=== PATIENT | male | born 1935 | race Two or more races ===

== ENCOUNTER 2017-10-26 16:01 | Inpatient (IN) | payer MEDICARE ==
[~2017-10-26] VITALS: Ht 167.6 cm; Wt 56.0 kg
[~2017-10-26 16:01] MED LIST: ALBUTEROL SULF8.5 GM INH; AMLODIPINE BESY10 MG PO; ATENOLOL50 MG PO; CARAFATE1 GM/10 ML PO; CYPROHEPTADINE H4 MG PO; LEVOXYL50 MCG PO; PANTOPRAZOLE SO40 MG PO; VASOTEC10 M1 PO
[2017-10-26] MEDS ORDERED: PANTOPRAZOLE 40 MG 10ML VIAL IV STA (16:55)
[2017-10-26] MEDS ORDERED: SODIUM CHLORIDE 0.9% 1000ML 1,000 ML IV STA (16:55)
[2017-10-26] MEDS ORDERED: DIATRIZOATE MEGL/DIATRIZOA SOD 30 ML BTL PO ONE (17:06)
[2017-10-26 17:21] LABS: BILIRUBIN,URINE NEGATIVE (NEGATIVE); CLARITY,URINE CLEAR (CLEAR); COLOR,URINE YELLOW (YELLOW); KETONES,URINE NEGATIVE (NEGATIVE); LEUKOCYTE ESTERASE ,URINE NEGATIVE (NEGATIVE); NITRITE,URINE NEGATIVE (NEGATIVE); PROTEIN,URINE DIPSTICK NEGATIVE (NEGATIVE); URINE UROBILINOGEN 0.2 mg/dL (0.2 - 1)
[2017-10-26 17:22] LABS: BASOPHILS # (AUTO) 0.1 (0.0-0.1); BASOPHILS % 0.5 % (0.0-1.0); EOSINOPHILS # (AUTO) 0.3 (0.0-0.4); EOSINOPHILS % 2.5 % (0.0-6.0); HEMATOCRIT 32.6 % (38.2-49.6); HEMOGLOBIN 10.8 g/dL (14.0-18.0); LYMPHOCYTES # (AUTO) 1.9 (1.0-3.2); LYMPHOCYTES % 16.8 % (18.0-39.1); MEAN CORPUSCULAR HEMOGLOBIN 25.2 pg (28-32); MEAN CORPUSCULAR HGB CONC 33.1 g/dL (31-35); MEAN CORPUSCULAR VOLUME 76.2 fL (81-99); MONOCYTES # (AUTO) 1.6 (0.2-0.8); MONOCYTES % 13.6 % (4.4-11.3); NEUTROPHILS # (AUTO) 7.7 (2.1-6.9); NEUTROPHILS % 66.3 % (38.7-80.0); PLATELET COUNT 442 x10e3/uL (140-360); RED BLOOD COUNT 4.28 x10e6/uL (4.3-5.7); RED CELL DISTRIBUTION WIDTH 14.4 % (11.7-14.4)
[2017-10-26] MEDS ORDERED: NIFEDIPINE 10 MG CAP PO ONE (17:30)
[2017-10-26 17:33] LABS: MUCUS,URINE FEW (RARE); RBC,URINE 0-5 /HPF (0-5); WBC,URINE (MAN) 0-5 /HPF (0-5)
[2017-10-26 17:41] LABS: ALBUMIN 3.9 g/dL (3.5-5.0); ALBUMIN/GLOBULIN RATIO 1.1 (0.8-2.0); ANION GAP 13.5 mmol/L (8-16); CALCIUM 9.6 mg/dL (8.4-10.2); CREATININE, SERUM 1.27 mg/dL (0.72-1.25); POTASSIUM 4.5 mmol/L (3.5-5.1)
[2017-10-26 18:29] LABS: EOSINOPHILS % (MANUAL) 2 % (0-7); LYMPHOCYTES % (MANUAL) 24 % (19-48); METAMYELOCYTES % (MANUAL) 1 % (0-0); MONOCYTES % (MANUAL) 20 % (3.4-9.0); NEUTROPHILS % (MANUAL) 50 % (40-74)
[2017-10-26 18:30] LABS: HYPOCHROMASIA SLIGHT; PLATELET ESTIMATE SLIGHTLY INCREASED; PLATELET MORPHOLOGY COMMENT NORMAL; RBC MORPHOLOGY COMMENT NORMAL
[2017-10-26] MEDS ORDERED: ONDANSETRON HCL INJ 2 MG/ML VIAL IV PRN (19:00)
[2017-10-26] MEDS ORDERED: LEVOFLOXACIN 500MG/D5W 100ML IV SCH (19:00)
--- NOTE | 2017-10-26 19:52 | Diagnostic Imaging Report ---
EXAM: CT of the abdomen and pelvis WITH contrast HISTORY: Blood in stool, weight loss COMPARISON: CT of the abdomen and pelvis October 21, 2016. TECHNIQUE: The abdomen and pelvis were scanned utilizing a multidetector helical scanner. Coronal and sagittal reformats are provided. PROTOCOL: Routine IV CONTRAST: 100 cc of Isovue-370. ORAL CONTRAST: Dilute Gastrografin RADIATION DOSE: Total DLP: 173.19 mGy*cm Estimated effective dose: (DLP x 0.015 x size factor) COMPLICATIONS: None FINDINGS: LOWER THORAX: Unremarkable. HEPATOBILIARY: No focal hepatic lesions. No biliary ductal dilatation. The gallbladder is unremarkable. SPLEEN: No splenomegaly. PANCREAS: No focal masses or ductal dilatation. Diffuse parenchymal atrophy. ADRENALS: No discrete adrenal nodule. KIDNEYS/URETERS: No hydronephrosis, stones, or solid mass lesions. PELVIC ORGANS/BLADDER: Increased distention of the urinary bladder. PERITONEUM / RETROPERITONEUM: No free air or fluid. LYMPH NODES: Nonspecific retroperitoneal lymph nodes. VESSELS: Extensive atherosclerotic vascular calcifications, including the coronary arteries, including: * The proximal celiac artery disease has progressed, now likely a short segment occlusion. * Also, likely progression of the superior mesenteric artery proximal occlusion. * Progression of the proximal inferior mesenteric artery disease, now with a high-grade stenosis. * As before, presumed retrograde reconstitution of the superior mesenteric artery distribution * The proximal renal artery stenoses appear similar. GI TRACT: Radiopaque contrast material within the stomach and proximal small bowel. The small bowel diameter measures up to 3 cm. Small bowel feces sign of the terminal ileum. Air and fecal material throughout the redundant colon. The sigmoid colon remains within the right hemipelvis/hemiabdomen. A small hiatal hernia. BONES: No aggressive osseous lesion or acute fracture. Partially visualized median sternotomy wires. SOFT TISSUES: Unchanged small right anterior thigh intramuscular lipoma. IMPRESSION: 1. Progression of the advanced after scrubbing vascular disease, including probable celiac artery proximal occlusion, proximal superior mesenteric artery occlusion, and progression of the proximal inferior mesenteric artery stenosis. Correlate for abdominal angina. 2. Stable appearing proximal renal artery stenoses. 3. Once again, redundant colon with the sigmoid colon within the right hemipelvis/hemiabdomen. 4. Borderline small bowel dilation may reflect ileus. No discrete transition point. Signed by: Dr. Michi Ferreira D.O., M.M.M. on 10/26/2017 7:49 PM
[2017-10-26] MEDS: LEVOFLOXACIN 500MG/D5W 100ML 100 ML IV SCH (21:40)
[2017-10-26] MEDS: D5.45%NS/KCL 20MEQ 1,000 ML IV SCH (21:40)
[2017-10-26] MEDS: METRONIDAZOLE 500MG/NS 100ML 100 ML IV SCH ×2 (21:40→23:53)
[2017-10-26] MEDS ORDERED: IOPAMIDOL 370 MG/ML 200 ML INFUS..BTL INJ ONE (22:33)
[2017-10-26] MEDS ORDERED: SODIUM CHLORIDE 0.9% 50ML 50 ML ONE (22:33)
[2017-10-27] MEDS ORDERED: METRONIDAZOLE 500MG/NS 100ML IV SCH
[2017-10-27] MEDS: METRONIDAZOLE 500MG/NS 100ML 100 ML IV SCH ×3 (06:08→20:00)
[2017-10-27 07:38] LABS: BASOPHILS % 0.4 % (0.0-1.0); EOSINOPHILS # (AUTO) 0.2 (0.0-0.4); EOSINOPHILS % 2.3 % (0.0-6.0); HEMATOCRIT 28.6 % (38.2-49.6); HEMOGLOBIN 9.5 g/dL (14.0-18.0); LYMPHOCYTES % 9.4 % (18.0-39.1); MEAN CORPUSCULAR HGB CONC 33.2 g/dL (31-35); MEAN CORPUSCULAR VOLUME 75.3 fL (81-99); MONOCYTES # (AUTO) 1.1 (0.2-0.8); NEUTROPHILS # (AUTO) 7.8 (2.1-6.9); NEUTROPHILS % 76.6 % (38.7-80.0); PLATELET COUNT 348 x10e3/uL (140-360); RED CELL DISTRIBUTION WIDTH 14.1 % (11.7-14.4)
[2017-10-27 07:52] LABS: ANION GAP 9.8 mmol/L (8-16); BLOOD UREA NITROGEN 11 mg/dL (7-26); BUN/CREATININE RATIO 11 (6-25); CARBON DIOXIDE 24 mmol/L (22-29); CHLORIDE 100 mmol/L (98-107); EST GLOMERULAR FILTRATION RATE > 60 ML/MIN (60-); GLUCOSE 109 mg/dL (74-118); POTASSIUM 4.8 mmol/L (3.5-5.1); SODIUM 129 mmol/L (136-145)
[2017-10-27] MEDS ORDERED: ALBUTEROL SULFATE HFA 8GM INHALATION AEROSOL INH PRN (10:00)
[2017-10-27] MEDS: D5.45%NS/KCL 20MEQ 1,000 ML IV SCH ×2 (10:29→20:35)
[2017-10-27] MEDS: PANTOPRAZOLE SOD 40 MG TABEC PO SCH ×2 (14:22→20:35)
[2017-10-27] MEDS: SUCRALFATE 1 GM/10 ML SUSP PO SCH ×3 (14:23→20:00)
--- NOTE | 2017-10-27 17:12 | Consultation ---
DATE OF CONSULTATION: October 27, 2017 CARDIOLOGY CONSULTATION ATTENDING PHYSICIAN: Dr. Maxime Ferguson. HISTORY: This 82 y/o male was evaluated in the emergency room today. Patient was brought in yesterday with a history of severe abdominal pain and recurrent bloody stools over a couple of weeks. This consultation was requested especially to help stabilize cardiac-hill and clear the patient for endoscopic procedure. PAST MEDICAL HISTORY: Hypertension, hypothyroidism, diabetes mellitus, prostatectomy. Cardiac catheterization and left anterior descending artery plus circumflex coronary artery stent placements at the [facility] in September and October 2009 respectively. MEDICATIONS: Amlodipine, metolazone and spironolactone on p.r.n. basis, Lipitor , Protonix, Plavix, aspirin, magnesium oxide, vitamin D3, calcium, multivitamins, [place]-3, probiotics. ALLERGIES: NONE. PERSONAL HISTORY: Nonsmoker for all his life. H/o drinking socially. Denied drug abuse Pt is retired. REVIEW OF SYSTEMS: Patient has a history of recurrent episodes of nausea, vomiting, diarrhea as noted above. There is a history of melena and hematochezia. Denied having any chest pain, dyspnea, palpitations, dizziness at this time. Denied any focalizing neurologic symptoms. PHYSICAL EXAMINATION GENERAL: A well-built, well-nourished, well-oriented male. VITALS: Afebrile. Pulse 55. Respiration 18. Blood pressure 165/72. NECK: Jugular veins normal. Carotid pulse normal. HEART: S1/S2 normal. LUNGS: Clear. ABDOMEN: Soft. EXTREMITIES: No edema. Peripheral pulses palpable. DIAGNOSTIC DATA EKG: Sinus bradycardia, nonspecific ST-T changes, right bundle branch block. CBC: Hgb 9.5, further down to 8.4. BMP: Sodium 129. BUN & creatinine normal. Liver function studies were normal. Colonoscopy: Hemorrhoids. Polyp. No active bleeder. Possibly bleeding hemorrhoids. FINAL IMPRESSION 1. Recurrent nausea, vomiting and bloody diarrhea, recurrent. 2. Hypertension. 3. Hypertensive heart disease. 4. Hyperlipidemia. 5. Chronic gastroesophageal reflux disease syndrome. 6. Anemia due to chronic rectal bleeding, needing two units blood transfusion. 7. History of left anterior descending and circumflex coronary artery stent placement. 8. Sinus bradycardia. 9. H/o bilateral renal artery stenosis, moderate degree. 10. 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 RECOMMENDATIONS: Suggest to continue current medical therapy with the beta gerald as tolerated. We will also continue with amlodipine and WILLOW or ARB agent. Suggest to continue pantoprazole and levothyroxine. Patient is advised to continue with Lasix as-needed basis.We will clear this pt. for EGD and colonoscoly at moderate risk. Pt. is quite high risk for any surgery under general anesthesia. I have advised him to discontinue Plavix & aspirin temporarily until the endoscopic evaluation is cleared. Patient has a guarded prognosis in view of severe extensive vascular disease such as coronary artery disease, carotid artery disease, renal artery disease, celiac and superior mesenteric arterial disease. We will continue conservative medical management for coeliac, superior & inferior mesenteric arterial disease. We can resume ASA and Plavix now. Advise simple spice free diet. We will follow along with you. Thank you, Dr. Maxime Ferguson, for this consultation. Job#: [id number] EV MTDD
[2017-10-27 17:52] VITALS: BP 190/70
[2017-10-27 18:43] VITALS: BP 190/70
[2017-10-27] MEDS: LEVOFLOXACIN 500MG/D5W 100ML 100 ML IV SCH (20:00)
[2017-10-27 20:26] VITALS: BP 182/78
[2017-10-27] MEDS: ATENOLOL 50 MG TAB PO SCH (20:30)
[2017-10-27] MEDS: AMLODIPINE BESYLATE 10 MG TAB PO SCH (20:30)
[2017-10-27] MEDS: ENALAPRIL MALEATE 10 MG TAB PO SCH (20:30)
[2017-10-27] MEDS ORDERED: PEG (High)/E-LYTE SOLN 4,000 ML BTL PO ONE (20:35)
[2017-10-27 22:14] VITALS: BP 178/75
[2017-10-28 00:18] VITALS: BP 177/75
[2017-10-28] MEDS: METRONIDAZOLE 500MG/NS 100ML 100 ML IV SCH ×4 (02:00→21:43)
[2017-10-28] MEDS: SUCRALFATE 1 GM/10 ML SUSP PO SCH ×4 (02:00→21:43)
[2017-10-28 04:10] VITALS: BP 125/58
[2017-10-28] MEDS: LEVOTHYROXINE SODIUM 50 MCG TAB PO SCH (05:33)
[2017-10-28 07:27] LABS: BASOPHILS % 0.4 % (0.0-1.0); EOSINOPHILS # (AUTO) 0.1 (0.0-0.4); EOSINOPHILS % 1.3 % (0.0-6.0); HEMATOCRIT 25.4 % (38.2-49.6); HEMOGLOBIN 8.4 g/dL (14.0-18.0); LYMPHOCYTES # (AUTO) 1.1 (1.0-3.2); LYMPHOCYTES % 14.8 % (18.0-39.1); MEAN CORPUSCULAR HGB CONC 33.1 g/dL (31-35); MEAN CORPUSCULAR VOLUME 75.6 fL (81-99); MONOCYTES # (AUTO) 1.1 (0.2-0.8); MONOCYTES % 14.5 % (4.4-11.3); NEUTROPHILS # (AUTO) 5.3 (2.1-6.9); NEUTROPHILS % 68.7 % (38.7-80.0); PLATELET COUNT 333 x10e3/uL (140-360); RED BLOOD COUNT 3.36 x10e6/uL (4.3-5.7); RED CELL DISTRIBUTION WIDTH 14.2 % (11.7-14.4)
[2017-10-28 07:41] VITALS: BP 127/57
[2017-10-28 07:57] LABS: ALANINE AMINOTRANSFERASE 15 IU/L (0-55); ALBUMIN 2.7 g/dL (3.5-5.0); ALBUMIN/GLOBULIN RATIO 1.1 (0.8-2.0); ALKALINE PHOSPHATASE 75 IU/L (40-150); ANION GAP 8.2 mmol/L (8-16); BLOOD UREA NITROGEN 8 mg/dL (7-26); BUN/CREATININE RATIO 7 (6-25); CALCIUM 8.4 mg/dL (8.4-10.2); CARBON DIOXIDE 27 mmol/L (22-29); CHLORIDE 100 mmol/L (98-107); CREATININE, SERUM 1.15 mg/dL (0.72-1.25); EST GLOMERULAR FILTRATION RATE > 60 ML/MIN (60-); GLUCOSE 124 mg/dL (74-118); POTASSIUM 4.2 mmol/L (3.5-5.1); SODIUM 131 mmol/L (136-145)
[2017-10-28] MEDS: ATENOLOL 50 MG TAB PO SCH (08:00)
[2017-10-28] MEDS: ENALAPRIL MALEATE 10 MG TAB PO SCH (08:00)
[2017-10-28] MEDS: PANTOPRAZOLE SOD 40 MG TABEC PO SCH ×2 (08:00→21:43)
[2017-10-28] MEDS: AMLODIPINE BESYLATE 10 MG TAB PO SCH (08:00)
[2017-10-28] MEDS ORDERED: LEVOTHYROXINE SODIUM 50 MCG TAB PO SCH (09:00)
[2017-10-28 12:10] LABS: HEMATOCRIT 25.8 % (38.2-49.6); HEMOGLOBIN 8.4 g/dL (14.0-18.0)
[2017-10-28 12:52] LABS: FERRITIN 19.91 ng/mL (21.81-274.66)
[2017-10-28 12:58] VITALS: BP 136/63
[2017-10-28] MEDS: D5.45%NS/KCL 20MEQ 1,000 ML IV SCH (14:30)
--- NOTE | 2017-10-28 15:42 | History and Physical ---
He is 82-year-old male patient of mine who presented to me with a complaint of bloody diarrhea with some intermittent blood in the stool. HISTORY OF PRESENT ILLNESS: Mr. Ferguson is 82-year-old male patient with a significant history of coronary artery disease, coronary artery bypass surgery, angioplasty and diabetes mellitus, hypertension, hyperlipidemia, anemia, and previous problem with gastritis and diverticulitis and GI bleeding. Presented to me with a complaint of intermittent history of bloody bowel movements. Patient is significantly losing weight and has a poor appetite and feeling weak. PAST MEDICAL HISTORY: Hypertension, diabetes mellitus, coronary artery disease, and intestinal angina. PAST SURGICAL HISTORY: Coronary artery bypass surgery and angioplasties. Patient has had colonoscopy and endoscopies. SOCIAL HISTORY: Denies smoking, denies using alcohol. FAMILY HISTORY: Diabetes mellitus, coronary artery disease. REVIEW OF SYSTEMS: Abdominal pain, abdominal discomfort, decreased appetite. Weakness and bloody stool. PHYSICAL EXAMINATION: VITAL SIGNS: Temperature 98, pulse rate 78, respiration rate 16, blood pressure 110/70. HEENT: Normocephalic, atraumatic. LUNGS: Bilateral equal fair air entry. No rales. No rhonchi. HEART: S1 and S2 regular. Systolic murmur present. ABDOMEN: Soft. Bowel sounds present. No focal tenderness, guarding, rigidity. NEUROLOGICAL: No focal neurological deficit. ADMITTING IMPRESSION AND DIAGNOSES: 1. Gastrointestinal bleed, rectal bleed, suspecting intestinal angina or mesenteric ischemia. 2. Colitis. 3. Diabetes mellitus. 4. Hypertension. 5. Coronary artery disease. 6. Anemia. 7. Hyperlipidemia. PLAN: Patient will be admitted with the above diagnoses. Will hold Plavix. Will obtain cardiology and GI consult. Patient had a CT scan of the abdomen done and was found to have significant vascular disease in the mesenteric and celiac vascular bed. Will monitor patient for hemoglobin and hematocrit. Patient will undergo endoscopic evaluation by Dr. Manzo. Job#: [id number]
[2017-10-28] MEDS ORDERED: SODIUM CHLORIDE 0.9% 250ML 250 ML IV ONE (16:30)
[2017-10-28] MEDS ORDERED: FUROSEMIDE INJ 10 MG/ML 4 ML VIAL IV ONE (17:00)
[2017-10-28 17:01] VITALS: BP 130/63
[2017-10-28] MEDS ORDERED: PROPOFOL IV EMULSION 10 MG/ML 50 ML VIAL ONE (18:34)
[2017-10-28] MEDS ORDERED: HYOSCYAMINE SULFATE 0.5 MG/ML AMP ONE (18:34)
[2017-10-28] MEDS ORDERED: LIDOCAINE HCL 2% LOCAL INJ 5 ML SDV VIAL INJ ONE (18:34)
[2017-10-28] MEDS ORDERED: DEXTROSE 10% 1,000 ML IV PRN (19:00)
[2017-10-28] MEDS ORDERED: MIDAZOLAM HCL 2 MG/2 ML VIAL ONE (19:04)
[2017-10-28] MEDS ORDERED: FENTANYL CITRATE/PF 100MCG/2 ML INJ ONE (19:04)
[2017-10-28] MEDS: LEVOFLOXACIN 500MG/D5W 100ML 100 ML IV SCH (21:43)
[2017-10-28 22:34] LABS: INR 1.17; PROTHROMBIN TIME 15.5 seconds (11.9-14.5)
[2017-10-28 22:35] LABS: PARTIAL THROMBOPLASTIN TIME 40.4 seconds (23.8-35.5)
[2017-10-29] VITALS: BP 113/56
[2017-10-29] MEDS: D5.45%NS/KCL 20MEQ 1,000 ML IV SCH (00:15)
[2017-10-29] MEDS ORDERED: SODIUM CHLORIDE 0.9% 250ML 250 ML ONE ×2 (00:19→04:41)
--- NOTE | 2017-10-29 01:16 | Operative Report ---
DATE OF PROCEDURE: October 28, 2017 REFERRING PHYSICIAN: Dr. Enma Read. PROCEDURE PERFORMED: Colonoscopy and polypectomy. INDICATIONS FOR COLONOSCOPY: Rectal bleeding, anemia. MEDICATION: Patient was done under MAC. Please see anesthesiologist's note. PROCEDURE: With the patient in left lateral decubitus position, the flexible fiberoptic Olympus colonoscope was inserted into the rectum with ease and advanced all the way to the cecum. It was then withdrawn slowly. Mucosa overlying the cecum, ascending, transverse, descending, and sigmoid appeared to be within normal limits. One polyp was hot biopsied from the distal rectum. The scope was then retroflexed into the distal rectum and moderate-sized internal hemorrhoids were noted, none of which was actively bleeding. The scope was then straightened out. The rectosigmoid area as well as the distal rectal area were decompressed. The scope was subsequently withdrawn. The patient tolerated the procedure well. IMPRESSIONS 1. Rectal polyp, hot biopsied. 2. Moderate-sized internal hemorrhoids. PLAN: Follow up histology. Findings do not necessarily explain patient's blood loss. Will obtain a GI bleed scan, and if negative, will proceed with EGD. Job#: [id number] CF cc:JESSICA READ MD
[2017-10-29] MEDS: SUCRALFATE 1 GM/10 ML SUSP PO SCH ×2 (02:00→08:00)
[2017-10-29] MEDS: METRONIDAZOLE 500MG/NS 100ML 100 ML IV SCH ×2 (03:48→08:00)
[2017-10-29 04:00] VITALS: BP 144/64
[2017-10-29] MEDS ORDERED: FUROSEMIDE INJ 10 MG/ML 4 ML VIAL IV ONE (04:30)
[2017-10-29] MEDS: LEVOTHYROXINE SODIUM 50 MCG TAB PO SCH (06:09)
[2017-10-29] MEDS: PANTOPRAZOLE SOD 40 MG TABEC PO SCH (08:00)
[2017-10-29] MEDS: AMLODIPINE BESYLATE 10 MG TAB PO SCH (08:00)
[2017-10-29] MEDS: ENALAPRIL MALEATE 10 MG TAB PO SCH (08:00)
[2017-10-29] MEDS: ATENOLOL 50 MG TAB PO SCH (08:00)
[2017-10-29 09:00] VITALS: BP 138/61
--- NOTE | 2017-10-29 10:44 | Consultation ---
DATE OF CONSULTATION: October 28, 2017 HISTORY OF PAST ILLNESSES: Mr. Read is an 82-year-old [place] male who has been referred to me for evaluation of anemia following hematochezia. History of past illness, history of significant coronary artery disease, history of coronary artery bypass, history of having had angioplasty. He has been on Plavix and aspirin, history of diabetes mellitus, hypertension and hyperlipidemia. SOCIAL HISTORY: Noncontributory. FAMILY HISTORY: Noncontributory. ALLERGIES: Reported none. MEDICATIONS: 1. Levaquin. 2. Metronidazole. 3. Ondansetron. 4. Enalapril. 5. Protonix. 6. Synthroid. 7. Amlodipine. 8. Carafate REVIEW OF SYSTEMS: HEENT: Normal. CARDIAC: Hypertension, hyperlipidemia, coronary artery disease, coronary artery bypass, coronary artery stenting, renal artery stenosis, SMA stenosis. GABBY stenosis. RESPIRATORY: Normal. GI: SMA stenosis. GABBY stenosis. The patient has hematochezia. : Bilateral renal artery stenosis. PHYSICAL EXAMINATION: GENERAL: A rather thin-built male, very anemic. No palpable adenopathy. HEART: Within normal limits. LUNGS: Clear. ____ is seen. ABDOMEN: Soft. and tender. RECTAL: Exam deferred. CENTRAL NERVOUS SYSTEM: Essentially normal. EXTREMITIES: Essentially normal. LABORATORY DATA: Investigations of interest show the patient to have had a hemoglobin of 10.8, hematocrit 32.6, white count of 11,500. Platelets are reported at 442,000. This is dated 10/26/2017. The patient has dropped down to 8.4, hematocrit 25.4, white count 7600, platelets 333,000 today. Retic response is very low at 1.6. Chemistry shows a low sodium of 127 and potassium 4.5, chloride 94, CO2 24, BUN 19, creatinine 1.27. Bilirubin 0.6, SGOT 23, SGPT 24, alkaline phosphatase 108. Total protein 7.6, albumin 3.9. Globulin slightly high at 3.7. However, the total proteins were reported later to be low at 5.2 and albumin to be 2.5. The patient's calcium, however, is still reported normal in spite of a low albumin. IMAGING: Consists of CAT scan of the abdomen and pelvis. The patient shows a progression of advanced celiac artery proximal occlusion. Proximal superior mesenteric artery occlusion. Proximal inferior mesentery artery stenosis. Proximal renal artery stenosis. Borderline small bowel dilatation. No other lab investigations of interest are available at this time for review. IMPRESSION: 1. Hematochezia. 2. Coronary artery disease. 3. Coronary artery bypass. 4. Status post angioplasty. 5. Hypertension. 6. Hyperlipidemia. 7. Diabetes mellitus. 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 11. Renal artery stenosis. 12. Anemia of blood loss. 13. Ischemic bowel. 14. Hyperlipidemia. 15. Hyponatremia. 16. Hypoproteinemia. 17. Hypoalbuminemia. 18. Weight loss. PLANS, COMMENTS AND SUGGESTIONS: Suggest the patient to be kept n.p.o. Suggest TPN. Suggest decompression if needed. Suggest surgical consult if needed. A central line and TPN. If found to have ischemic bowel, I would highly suggest the patient to be treated with. heparin protocol weight based. I will confine myself to hematology. I have discussed this with Dr. Kenan Read at length. Thank you very much for allowing me to participate in management of this patient. Job#: [id number] cc:KENAN READ MD cc:HOANG SALCEDO MD
[2017-10-29 11:29] LABS: BASOPHILS % 0.4 % (0.0-1.0); EOSINOPHILS # (AUTO) 0.6 (0.0-0.4); EOSINOPHILS % 5.9 % (0.0-6.0); HEMOGLOBIN 11.1 g/dL (14.0-18.0); LYMPHOCYTES # (AUTO) 1.2 (1.0-3.2); LYMPHOCYTES % 12.8 % (18.0-39.1); MEAN CORPUSCULAR HEMOGLOBIN 25.3 pg (28-32); MEAN CORPUSCULAR HGB CONC 33.6 g/dL (31-35); MEAN CORPUSCULAR VOLUME 75.3 fL (81-99); MONOCYTES # (AUTO) 1.2 (0.2-0.8); MONOCYTES % 12.4 % (4.4-11.3); NEUTROPHILS # (AUTO) 6.5 (2.1-6.9); NEUTROPHILS % 68.3 % (38.7-80.0); PLATELET COUNT 329 x10e3/uL (140-360); RED BLOOD COUNT 4.38 x10e6/uL (4.3-5.7); RED CELL DISTRIBUTION WIDTH 15.3 % (11.7-14.4)
[2017-10-29 11:59] LABS: ALBUMIN 2.8 g/dL (3.5-5.0); ANION GAP 8.9 mmol/L (8-16); CALCIUM 8.6 mg/dL (8.4-10.2); CREATININE, SERUM 1.33 mg/dL (0.72-1.25); POTASSIUM 3.9 mmol/L (3.5-5.1)
--- NOTE | 2017-10-29 13:31 | Diagnostic Imaging Report ---
Tagged-RBC GI Bleed Study Clinical information: 82-year-old male with rectal bleeding. Discussion: The patient's own red blood cells were labeled with 24 mCi of technetium-99m pertechnetate using the in vitro method (UltraTag). Dynamic images of the abdomen were obtained through 60 minutes. Distribution of tracer activity appears physiologic throughout the abdomen. No abnormal accumulation of tracer is seen within the gastrointestinal lumen. Impression: No scan evidence of active gastrointestinal bleeding at this time. Signed by: Dr. Cuca Ruiz M.D. on 10/29/2017 1:28 PM
[2017-10-29] MEDS ORDERED: CENTRAL TPN FORMULA 1 BAG IV SCH (20:00)
== END 2017-10-29 15:11 | disposition home or self-care (01) | DRG 378 ==
LOC: ER 16:01 → EDBEDREQ 19:13 → ERHOLD 19:15 → MED/SURG3 10-27 15:16
PROVIDERS: ADMIT Internal Medicine; ATTEND Internal Medicine
PROC: 30233N1 Transfusion of Nonautologous Red Blood Cells into Peripheral Vein, Percutaneous Approach (ICD-10-PCS; 2017-10-28)
PROC: 0DBP8ZX Excision of Rectum, Via Natural or Artificial Opening Endoscopic, Diagnostic (ICD-10-PCS; principal; 2017-10-28 19:05)
DX: K92.2 Gastrointestinal hemorrhage, unspecified (principal); E87.1 Hypo-osmolality and hyponatremia; E11.22 Type 2 diabetes mellitus with diabetic chronic kidney disease; I13.10 Hypertensive heart and chronic kidney disease without heart failure, with stage 1 through stage 4 chronic kidney disease, or unspecified chronic kidney disease; E11.51 Type 2 diabetes mellitus with diabetic peripheral angiopathy without gangrene; K62.1 Rectal polyp; K64.8 Other hemorrhoids; D50.0 Iron deficiency anemia secondary to blood loss (chronic); I25.10 Atherosclerotic heart disease of native coronary artery without angina pectoris; E03.9 Hypothyroidism, unspecified; Z95.1 Presence of aortocoronary bypass graft; Z95.5 Presence of coronary angioplasty implant and graft; E88.09 Other disorders of plasma-protein metabolism, not elsewhere classified; I70.1 Atherosclerosis of renal artery; G89.29 Other chronic pain; N18.9 Chronic kidney disease, unspecified; K21.9 Gastro-esophageal reflux disease without esophagitis; N40.0 Benign prostatic hyperplasia without lower urinary tract symptoms; Z79.4 Long term (current) use of insulin; Z79.82 Long term (current) use of aspirin; Z79.01 Long term (current) use of anticoagulants; Z86.711 Personal history of pulmonary embolism
CPT/HCPCS: 36415; 36430; 45384; 74177; 78278; 80048; 80053; 81001; 82150; 82728; 82948; 83540; 83690; 84466; 85014; 85018; 85025; 85045; 85610; 85730; 86850; 86900; 86920; 87086; 88305; 93005; 99285; A9512; J1940; J1956; J1980; J2001; J2250; J7030; J7050; P9016; Q9967

== ENCOUNTER → 2018-10-13 | Outpatient (CLI) | payer MEDICARE ==
--- NOTE | 2018-10-16 08:33 | Diagnostic Imaging Report ---
MRI BRAIN WO HISTORY: Amnesia COMPARISON: None. TECHNIQUE: Axial T2, multiplanar T1 3-D FSPGR, axial T2/FLAIR, axial gradient echo (or susceptibility weighted), and axial diffusion weighted MR images of the brain were obtained without contrast. DISCUSSION: Scalp/bone marrow: Unremarkable. Brain volume: There is mild generalized cerebral volume loss. No disproportionate lobar, hippocampal, mesencephalic, pontine, or cerebellar atrophy. Parenchyma: Scattered T2/FLAIR hyperintense foci throughout the supratentorial white matter and gilda are likely chronic microvascular ischemic changes. Mild focal encephalomalacia along the right intraparietal sulcus (along the right periatrial white matter) may be from remote infarct. Otherwise, no basal ganglia, or thalamic signal abnormalities. No evidence for microhemorrhage. No mass or acute vascular insults. Ventricles: Compensatory dilatation. Extra-axial spaces: No masses or fluid collections. Vessels: Normal flow voids in major arteries and veins. Sellar/Suprasellar region: No abnormalities. Craniocervical junction: No abnormalities. Incidental findings: Both ocular lenses are thinned. IMPRESSION: 1. No acute intracranial abnormalities. 2. Mild supratentorial/pontine chronic microvascular ischemic change. 3. Mild generalized cerebral volume loss. 4. Mild focal encephalomalacia along the right intraparietal sulcus (along the right periatrial white matter) may be from remote infarct. Signed by: Dr. Beck Piper M.D. on 10/16/2018 8:30 AM
== END ==
LOC: MRI 14:53
PROVIDERS: ATTEND Internal Medicine
DX: R41.3 Other amnesia (principal)
CPT/HCPCS: 70551

== ENCOUNTER → 2021-04-21 | Outpatient (CLI) | payer MEDICARE | LOC: RAD 10:37 | PROVIDERS: ATTEND Internal Medicine | DX: I50.32 Chronic diastolic (congestive) heart failure (principal) | CPT/HCPCS: 71046 ==

== ENCOUNTER → 2023-02-04 | Outpatient (CLI) | payer MEDICARE | LOC: RAD 13:10 | PROVIDERS: ATTEND Internal Medicine | DX: I50.32 Chronic diastolic (congestive) heart failure (principal) | CPT/HCPCS: 71046 ==

== ENCOUNTER → 2024-09-12 | Outpatient (REF) | payer MEDICARE | LOC: DX 09:09 | PROVIDERS: ATTEND Internal Medicine | DX: R13.12 Dysphagia, oropharyngeal phase (principal) | CPT/HCPCS: 74220 ==